=== PATIENT | male | born 1995 | race Caucasian/White ===

== ENCOUNTER 2024-09-24 09:10 | Emergency (ER) | payer SELFPAY ==
[2024-09-24 09:22] VITALS: BP 143/74; PULSE 83; RESP 20; TEMP 97.7; BMI 33.6
[2024-09-24] MEDS ORDERED: KETOROLAC TROMETHAMINE 30 MG/1 ML VIAL ONE (09:43)
[2024-09-24] MEDS: KETOROLAC TROMETHAMINE 30 MG/1 ML VIAL IM ONE (09:50)
[2024-09-24] MEDS ORDERED: diazePAM 5 MG TABLET ONE (09:56)
[2024-09-24] MEDS: diazePAM 5 MG TABLET PO ONE (09:59)
== END 2024-09-24 11:35 | disposition home or self-care (01) ==
LOC: JERFT 09:10
PROC: 3E0133Z Introduction of Anti-inflammatory into Subcutaneous Tissue, Percutaneous Approach (ICD-10-PCS; principal; 2024-09-24)
DX: S42.021A Displaced fracture of shaft of right clavicle, initial encounter for closed fracture (principal); S05.11XA Contusion of eyeball and orbital tissues, right eye, initial encounter; S20.211A Contusion of right front wall of thorax, initial encounter; W01.198A Fall on same level from slipping, tripping and stumbling with subsequent striking against other object, initial encounter
CPT/HCPCS: 73030-TC-RT-FY; 99284-25